=== PATIENT | female | born 2000 | race African-American/Black ===

== ENCOUNTER 2023-03-18 12:11 | Emergency (ER) | payer MEDICAID ==
[~2023-03-18] VITALS: Ht 170.2 cm; Wt 63.5 kg
[2023-03-18 14:34] LABS: BILIRUBIN,URINE 1+ (NEGATIVE); COLOR,URINE YELLOW (YELLOW); LEUKOCYTE ESTERASE ,URINE NEGATIVE (NEGATIVE); NITRITE, URINE NEGATIVE (NEGATIVE); PROTEIN,URINE NEGATIVE (NEGATIVE); UGLUCOSE NEGATIVE (NEGATIVE); UROBILINOGEN,URINE 0.2 EU/dL (0.2)
[2023-03-18 14:53] LABS: BACTERIA,URINE Rare /HPF (None Seen); WBC,URINE NONE SEEN /HPF (0-3)
[2023-03-18 14:55] LABS: SQUAMOUS EPITHELIAL CELL,UR Few /HPF (None Seen)
--- NOTE | 2023-03-18 15:00 | NUR ---
BIBS FOR VAGINAL BLEEDING. A/O X 3, ABLE TO MAKE NEEDS KNOWN, TOLERATING WELL ON ROOM AIR.
--- NOTE | 2023-03-18 15:34 | NUR ---
Patient discharged to home in stable condition. Written and verbal after care instructions given. Patient verbalizes understanding of instruction.
[2023-03-18 15:36] VITALS: BP 112/74; TEMP 98.6
== END 2023-03-18 15:36 | disposition home or self-care (01) ==
LOC: ER 12:15
DX: N93.9 Abnormal uterine and vaginal bleeding, unspecified (principal); Z88.0 Allergy status to penicillin
CPT/HCPCS: 36415; 81001; 84702-TC; 84703-TC; 87086-TC; 87491; 87591

== ENCOUNTER 2023-06-22 11:07 | Emergency (ER) | payer MEDICAID, OTHER ==
[~2023-06-22] VITALS: Ht 170.2 cm; Wt 68.5 kg
[~2023-06-22 11:07] MED LIST: DOXY100C2 PO
[2023-06-22] MEDS ORDERED: IBUPROFEN 600 MG TABLET ONE (11:59)
[2023-06-22] MEDS ORDERED: IBUPROFEN 600 MG TABLET PO ONE (12:00)
[2023-06-22 13:01] VITALS: BP 116/74; TEMP 97.8; O2SAT 100
== END 2023-06-22 13:01 | disposition home or self-care (01) ==
LOC: ER 11:17
DX: M54.50 Low back pain, unspecified (principal); Z88.0 Allergy status to penicillin
CPT/HCPCS: 72100-TC

== ENCOUNTER 2023-08-02 10:01 | Emergency (ER) | payer MEDICAID ==
[~2023-08-02] VITALS: Ht 167.6 cm; Wt 68.5 kg
[2023-08-02 11:07] VITALS: BP 116/78; TEMP 98.4; O2SAT 98
[2023-08-02 11:24] LABS: PREGNANCY TEST URINE QUAL NEGATIVE (NEGATIVE)
[2023-08-02 14:30] LABS: HIV-1 p24 ANTIGEN NON REACTIVE (NONREACTIVE); HIV-1/2 ANTIBODY NON REACTIVE (NONREACTIVE)
[2023-08-05 05:08] LABS: RAPID PLASMA REAGIN QUAL. Non Reactive (Non Reactive)
[2023-08-05 23:06] LABS: CHLAMYDIA TRACHOMATIS NAA Negative (Negative); NEISSERIA GONORRHOEAE NAA Negative (Negative)
== END 2023-08-02 11:07 | disposition home or self-care (01) ==
LOC: ER 10:05
DX: Z11.3 Encounter for screening for infections with a predominantly sexual mode of transmission (principal); Z88.0 Allergy status to penicillin; Z79.899 Other long term (current) drug therapy
CPT/HCPCS: 84703-TC; 86592; 86593; 87491; 87591; 87806

== ENCOUNTER 2024-05-02 16:53 | Emergency (ER) | payer MEDICAID, OTHER ==
[~2024-05-02] VITALS: Ht 170.2 cm; Wt 61.2 kg
[2024-05-02 17:25] VITALS: TEMP 98
[2024-05-02 17:57] LABS: APPEARANCE,URINE CLEAR (CLEAR); BILIRUBIN,URINE 1+ (NEGATIVE); BLOOD, URINE NEGATIVE Ery/uL (NEGATIVE); COLOR,URINE YELLOW (YELLOW); KETONES,URINE 2+ mg/dL (NEGATIVE); LEUKOCYTE ESTERASE ,URINE NEGATIVE (NEGATIVE); NITRITE, URINE NEGATIVE (NEGATIVE); PROTEIN,URINE TRACE mg/dl (NEGATIVE); UGLUCOSE NEGATIVE (NEGATIVE)
[2024-05-02 18:01] LABS: PREGNANCY TEST URINE QUAL NEGATIVE (NEGATIVE)
[2024-05-02] MEDS ORDERED: IBUP-1953 PO (18:13)
[2024-05-02] MEDS ORDERED: DOXY100C2 PO (18:13)
[2024-05-02 18:17] LABS: ADD URINE CULTURE NO; BACTERIA,URINE None seen /HPF (None Seen); MUCUS,URINE Moderate /LPF (None Seen); RBC,URINE 0-2 /HPF (0-2); WBC,URINE 0-2 /HPF (0-3)
[2024-05-02 18:51] VITALS: BP 125/75; O2SAT 96
== END 2024-05-02 18:54 | disposition home or self-care (01) ==
LOC: ER 16:53
DX: N93.9 Abnormal uterine and vaginal bleeding, unspecified (principal); R10.2 Pelvic and perineal pain; R10.12 Left upper quadrant pain; Z88.0 Allergy status to penicillin
CPT/HCPCS: 81001; 84703-TC

== ENCOUNTER 2024-05-11 15:08 | Emergency (ER) | payer OTHER ==
[~2024-05-11] VITALS: Ht 170.2 cm; Wt 61.2 kg
[~2024-05-11 15:08] MED LIST changes: +IBUP-1953 PO
[2024-05-11] MEDS ORDERED: ACETAMINOPHEN ES 500 MG TABLET ONE (16:06)
[2024-05-11] MEDS: ACETAMINOPHEN ES 500 MG TABLET PO ONE (16:07)
[2024-05-11 17:11] LABS: APPEARANCE,URINE Clear (CLEAR); BILIRUBIN,URINE SMALL (NEGATIVE); BLOOD, URINE Trace-lysed Ery/uL (NEGATIVE); COLOR,URINE YELLOW (YELLOW); KETONES,URINE Negative (NEGATIVE); LEUKOCYTE ESTERASE ,URINE Negative (NEGATIVE); NITRITE, URINE Negative (NEGATIVE); PROTEIN,URINE Negative (NEGATIVE); UGLUCOSE Negative (NEGATIVE); UROBILINOGEN,URINE 0.2 EU/dL (0.2)
[2024-05-11 17:14] LABS: PREGNANCY TEST URINE QUAL NEGATIVE (NEGATIVE)
[2024-05-11 17:16] LABS: ADD URINE CULTURE NO; BACTERIA,URINE Few /HPF (None Seen); SQUAMOUS EPITHELIAL CELL,UR Few /HPF (None Seen); WBC,URINE 0-2 /HPF (0-3)
[2024-05-11 17:50] VITALS: BP 123/84; TEMP 98.6; O2SAT 99
[2024-05-12 12:09] LABS: CHLAMYDIA TRACHOMATIS NAA Negative (Negative); NEISSERIA GONORRHOEAE NAA Negative (Negative)
== END 2024-05-11 17:51 | disposition home or self-care (01) ==
LOC: ER 15:08
DX: N93.9 Abnormal uterine and vaginal bleeding, unspecified (principal); Z79.1 Long term (current) use of non-steroidal anti-inflammatories (NSAID); R10.2 Pelvic and perineal pain; Z79.899 Other long term (current) drug therapy; Z88.0 Allergy status to penicillin
CPT/HCPCS: 76856-TC; 81001; 84703-TC; 87491; 87591